=== PATIENT | female | born 1955 | race Caucasian/White ===

== ENCOUNTER 2023-11-09 08:31 | Day surgery (SDC) | payer MEDICARE, SELFPAY ==
--- NOTE | 2023-11-09 | PATH_ITS ---
[facility] Accession Number: [id number] No. of containers..03 Tissue . 01 Material submitted: . PART A: duodenum - DUODENUM PART B: gastrointestinal site - ANTRUM PART C: gastrointestinal site - GASTRIC POLYP . 01 Diagnosis: A. DUODENUM, BIOPSY: Duodenal mucosa with no diagnostic abnormality. Negative for active inflammation, features of sprue, dysplasia, or malignancy. . B. STOMACH, ANTRUM, BIOPSY: Antral mucosa with reactive gastropathy and features suggestive of nearby erosion. Negative for Helicobacter by immunohistochemistry. Negative for intestinal metaplasia. Negative for dysplasia and malignancy. . C. STOMACH, POLYP: Fundic gland polyp in two of four fragments. Body-type mucosa with foveolar hyperplasia, one fragment. No evidence of Helicobacter on H/E stain. Negative for intestinal metaplasia. Negative for dysplasia and malignancy. [facility] 11/12/2023 1310 Local . 01 Electronically signed: . Michelle Saez MD, Pathologist NPI- [id number] . 01 Gross description: . A. Received in formalin with two patient identifiers and duodenum, is a single chase soft tissue fragment, 0.4 in greatest dimension. Submitted in A1. B. Received in formalin with two patient identifiers and antrum, are three chase soft tissue fragments, 0.2 to 0.4 cm in greatest dimension. Submitted in B1. C. Received in formalin with two patient identifiers and gastric polyp are four chase soft tissue fragments, 0.2 to 0.3 cm in greatest dimension. Submitted in C1. ([id number]) /MRV 11/10/2023 1838 Local . 01 Microscopic: . B. An immunohistochemical stain was performed to evaluate for Helicobacter organisms and is negative. The control stain showed appropriate reactivity. . * This test was developed and its performance characteristics determined by [facility]. It has not been cleared or approved by the U.S. Food and Drug Administration. The FDA has determined that such clearance or approval is not necessary. This test is used for clinical purposes. It should not be regarded as investigational or for research. . 01 Pathologist provided ICD-10: K31.7 . 01 CPT . 872065, 768076, 103673, [id number] Specimen Comment: A courtesy copy of this report has been sent to [phone] Performed at: [address] [id number] MD [place] MD Phone: [phone]
[2023-11-09 09:33] VITALS: BP 162/87; PULSE 79; RESP 16; TEMP 36.4; O2SAT 99
[2023-11-09] MEDS: LACTATED RINGERS 1,000 ML 42 ML IV (09:38)
--- NOTE | 2023-11-09 10:04 | P.HP_ITS ---
History of Present Illness History of Present Illness Date Patient Seen: 11/09/23 Time Patient Seen: 10:04 Chief complaint: EGD & Colonoscopy Narrative: 68-year-old female with symptoms of intermittent right upper quadrant pain diminished appetite weight loss and chronic reflux. She has stabilized and improved since discontinuation of ibuprofen. [facility] Social History Smoking Status: Never smoker alcohol intake: never Meds Home Medications and Allergies Home Medications Medication Instructions Recorded Confirmed Type levothyroxine 50 mcg tablet 50 mcg PO QAM 11/09/23 11/09/23 History sertraline 100 mg tablet 150 mg PO DAILY 11/09/23 11/09/23 History Allergies Allergy/AdvReac Type Severity Reaction Status Date / Time Penicillins Allergy Verified 11/09/23 09:26 Sulfa (Sulfonamide Allergy Verified 11/09/23 09:26 Antibiotics) Review of Systems Review of Systems ROS: Yes All systems reviewed with the patient and are negative except as otherwise documented Exam Vital Signs (past 8 hours): - 11/09/23 09:33 Temperature 97.6 F Pulse Rate 79 Respiratory Rate 16 Blood Pressure 162/87 H Pulse Oximetry 99 Oxygen Delivery Method Room Air Oxygen Delivery Method Room Air Const General: cooperative HENMT Head: normal to inspection Eyes General: appearance normal, both eyes and all related structures Neck Neck: normal visual inspection Chest Chest: normal inspection of the chest Resp Effort & Inspection: normal respiratory effort Cardio Rate: regular rate GI Inspection: normal to inspection Skin General: no rashes or lesions noted Neuro General: patient alert and patient awake Extrem General: normal to inspection and no pedal edema Psych Appearance: grossly normal Assessment & Plan Assessment & Plan narrative: 68-year-old female with diminished appetite intermittent right upper quadrant pain weight loss and chronic reflux. Diagnostic EGD is pursued today. Time-Based Coding :: [TOTAL MINUTES] spent with patient and on the chart (including review of chart, obtaining history, exam, reviewing outside data, placing orders, documenting exam and treatment plan, and counseling patient) on [DATE].
--- NOTE | 2023-11-09 10:06 | PM.PREOP ---
Pre-operative Note Interval Note History & Physical reviewed/Exam performed by Physician: Yes Changes to H&P: Yes ASA Class (for procedural sedation): II
--- NOTE | 2023-11-09 10:52 | PM.OP.EGD ---
Operative Date/Time/Diagnoses Date of procedure: 11/09/23 Time of procedure: 10:52 Pre-op diagnosis: Intermittent right upper quadrant pain, weight loss, diminished appetite, GERD Post-op diagnosis: same Procedure & Clinicians Study performed: EGD with biopsies Same procedure as scheduled: Yes Indications: Intermittent right upper quadrant pain, weight loss, diminished appetite, GERD Surgeon: Elvis Beltran Procedure Notes SCOAP/Timeout: Done Procedure in detail: After the risks and benefits were explained, written and verbal informed consent was obtained. The patient was brought into the procedure room and placed into the left lateral decubitus position. Please see anesthesia notes for sedation details. The scope was introduced into the mouth through the bite block and advanced under direct visualization to the 2nd portion of the duodenum. The scope was slowly withdrawn carefully examining the mucosa for any defects or lesions. Retroflexed views were accomplished in the stomach. The stomach was decompressed, the scope was then removed from the patient who tolerated the procedure well. Sedation minutes: 11 Complications: none Impression: 1. Duodenal: This was visually normal from the bulb through to the 2nd portion. D2 biopsies were taken for exclusion of sprue. 2. Stomach: No active ulcers no mass lesions no outlet obstruction. Retroflexed views of the LES were fairly unremarkable. The patient had scattered subtle erosive erythema all throughout the antrum but no focal or dominant lesion. Biopsies were taken from this location for exclusion of H pylori or other pathology. In the more proximal stomach there were some scattered diminutive benign-appearing polyps. A couple of these were removed with cold forceps for a sales representative groceries sample. 3. Esophagus: The squamocolumnar junction correlated with the top of the gastric folds. No visible suggestion of Barretts. No active esophagitis. No strictures nor mass lesions throughout. GEJ was at about 36 cm from the incisors. Endoscopic diagnosis 1. Erosive gastropathy 2. Diminutive gastric polyps Post-procedure Plan for aftercare: 1. Await histology. 2. If Helicobacter is found, it will need to be eradicated with standard triple therapy recognizing the stated allergies to penicillin and sulfa 3. Continue anti-reflux therapy. Disposition: PACU
[2023-11-09 10:55] VITALS: BP 161/74; PULSE 67; RESP 16; TEMP 36.1; O2SAT 98
[2023-11-09 11:00] VITALS: BP 144/73; PULSE 64; RESP 13; O2SAT 98
[2023-11-09 11:05] VITALS: BP 144/73; PULSE 74; RESP 17; O2SAT 99
[2023-11-09 11:13] VITALS: BP 137/73; PULSE 64; RESP 12; O2SAT 98
== END 2023-11-09 11:21 | disposition home or self-care (01) ==
PROVIDERS: Referring Provider Internal Medicine Gastroenterology; Visit Provider Internal Medicine Gastroenterology
PROC: 0DJ08ZZ Inspection of Upper Intestinal Tract, Via Natural or Artificial Opening Endoscopic (ICD-10-PCS; CPT 43235; principal; 2023-11-09 10:00)
DX: R10.11 Right upper quadrant pain (principal); R63.4 Abnormal weight loss; K21.9 Gastro-esophageal reflux disease without esophagitis; K31.89 Other diseases of stomach and duodenum; K31.7 Polyp of stomach and duodenum
CPT/HCPCS: 43239; J2704